=== PATIENT | female | born 1980 | race Caucasian/White ===

== ENCOUNTER 2016-12-01 01:20 | Emergency (ER) | payer OTHER ==
[2016-12-01 02:15] VITALS: BP 116/91
--- NOTE | 2016-12-01 02:40 | EDM.PDOC ---
ED HPI GENERAL MEDICAL PROBLEM - General Chief Complaint: ENT Problem Stated Complaint: SINUS INFECTION Time Seen by Provider: 12/01/16 02:34 Source of Information: Reports: Patient History Limitations: Reports: No Limitations - History of Present Illness INITIAL COMMENTS - FREE TEXT/NARRATIVE: This lady complains of sinus pressure. It's been going on for 2 weeks. It's mostly in the left frontal area. It seems to go up over the top of the head down to the back of the neck. She also just feels pressure over the front of the for head and over the maxillary sinuses. She had a little bit of drainage earlier in the week. She denies any fever. sinus, headache, and neck Pain Score (Numeric/FACES): 6 - Related Data Allergies Allergy/AdvReac Type Severity Reaction Status Date / Time ciprofloxacin [From Cipro] Allergy Fainting Verified 12/01/16 02:12 ciprofloxacin HCl Allergy Fainting Verified 12/01/16 02:12 [From Cipro] Sulfa (Sulfonamide Allergy Hives Verified 12/01/16 02:12 Antibiotics) sulfamethoxazole Allergy Hives Verified 12/01/16 02:12 [From Bactrim] trimethoprim [From Bactrim] Allergy Hives Verified 12/01/16 02:12 tape Allergy Itching Uncoded 12/01/16 02:12 Home Meds: Home Meds Albuterol Sulfate [Proair Hfa] 8.5 gm IH Q6HR PRN 11/04/14 [History] Citalopram Hydrobromide [Celexa] 10 mg PO DAILY 11/04/14 [History] Cyclobenzaprine [Flexeril] 10 mg PO TID PRN 11/04/14 [History] Mupirocin Oint [Bactroban Oint] 22 gm TP DAILY 11/04/14 [History] Ondansetron [Zofran ODT] 4 mg PO Q8HR PRN 11/04/14 [History] Triamcinolone Acetonide [Kenalog 0.1% Crm] 15 gm .XX DAILY 11/04/14 [History] Cholecalciferol (Vitamin D3) [Vitamin D3] 1 tab PO DAILY 06/01/15 [History] Erythromycin Base [Oliver-Tab] 1 tab PO BID 06/01/15 [History] Mineral Oil/Pramoxine/ZnOx [Anusol] 1 applic TOP DAILY PRN 06/01/15 [History] Multivitamin [Multivitamins] 1 tab PO DAILY 06/01/15 [History] Past Medical History - Past Health History Medical/Surgical History: Denies Medical/Surgical History Cardiovascular History: Reports: Other (See Below) Other Cardiovascular History: hypotension Respiratory History: Reports: Asthma Gastrointestinal History: Reports: Cholelithiasis, Hiatal Hernia, PUD Other Gastrointestinal History: ulcer Genitourinary History: Reports: UTI, Recurrent Other Genitourinary History: right ureter surgery 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: 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 Musculoskeletal History: Reports: Other (See Below) Other Musculoskeletal History: right hip tear with cortisone injection, pectoralis tendonitis Neurological History: Reports: Migraines Psychiatric History: Reports: Anxiety, Depression Other Dermatologic History: frequent infections of acne in groin - Infectious Disease History Infectious Disease History: Reports: C-Difficile - Past Surgical History HEENT Surgical History: Reports: LASIK GI Surgical History: Reports: Cholecystectomy, Vlad Fundoplication, Other ( See Below) Female Surgical History: Reports: Ureteral Stent Musculoskeletal Surgical History: Reports: Arthroscopic Knee Social & Family History - Tobacco Use Smoking Status *Q: Never Smoker Second Hand Smoke Exposure: No - Caffeine Use Caffeine Use: Reports: None - Recreational Drug Use Recreational Drug Use: No ED ROS ENT - Review of Systems Review Of Systems: ROS reveals no pertinent complaints other than HPI. ED EXAM, ENT - Physical Exam Exam: See Below Exam Limited By: No Limitations General Appearance: Alert, WD/WN, Mild Distress Eye Exam: Bilateral Eye: Normal Inspection Nose: Normal Inspection Mouth/Throat: Normal Inspection Head: Atraumatic, Sinus Tenderness (There is moderate to severe tenderness over the frontal sinus moderate tenderness over the maxillary sinuses.) Neck: Normal Inspection Respiratory/Chest: Lungs Clear Cardiovascular: Regular Rate, Rhythm, No Murmur Neurological: Alert, Oriented Skin: Warm, Dry Course - Vital Signs Last Recorded V/S: Last Vital Signs Temp 36.7 C 12/01/16 02:14 Pulse 82 12/01/16 02:14 Resp 16 12/01/16 02:14 BP 116/91 H 12/01/16 02:14 Pulse Ox 96 12/01/16 02:14 Departure - Departure Time of Disposition: 02:38 Disposition: Home, Self-Care 01 Condition: Fair Clinical Impression: Acute sinusitis - Discharge Information Forms: ED Department Discharge Additional Instructions: Take amoxicillin 500 mg 3 times daily for 10 days. For pain take Narco 5/325, one or 2 tablets every 4 hours as needed, #18 dispensed. This medication can cause sedation and impair driving so use with caution. You may take Motrin along with the above medications for extra pain relief. Do not however take any Tylenol or acetaminophen since that is already contained in the Happy. See your Dr. if no better in a few days
== END 2016-12-01 02:47 | disposition home or self-care (01) ==
LOC: JP.ED 01:20
DX: J01.90 Acute sinusitis, unspecified (principal); J45.909 Unspecified asthma, uncomplicated; G43.909 Migraine, unspecified, not intractable, without status migrainosus; F41.9 Anxiety disorder, unspecified; F32.9 Major depressive disorder, single episode, unspecified; I95.9 Hypotension, unspecified; Z90.49 Acquired absence of other specified parts of digestive tract; Z98.49 Cataract extraction status, unspecified eye; Z79.899 Other long term (current) drug therapy; Z88.1 Allergy status to other antibiotic agents; Z88.2 Allergy status to sulfonamides; Z91.09 Other allergy status, other than to drugs and biological substances
CPT/HCPCS: 99283

== ENCOUNTER 2017-01-21 21:17 | Emergency (ER) | payer OTHER ==
[2017-01-21] MEDS ORDERED: Ketorolac 30 MG/ML SDV IVPUSH ONE (23:02)
[2017-01-21] MEDS ORDERED: Prochlorperazine 10 MG/2 ML SDV IVPUSH ONE (23:02)
[2017-01-21] MEDS ORDERED: Sodium Chloride 0.9% 10 ML Syringe FLUSH PRN (23:02)
[2017-01-21] MEDS ORDERED: diphenhydrAMINE 50 MG/ML SDV IVPUSH ONE (23:02)
--- NOTE | 2017-01-21 23:04 | EDM.PDOC ---
ED HPI GENERAL MEDICAL PROBLEM - General Chief Complaint: Headache Stated Complaint: MIGRAINE Time Seen by Provider: 01/21/17 22:57 Source of Information: Reports: Patient, RN Notes Reviewed History Limitations: Reports: No Limitations - History of Present Illness INITIAL COMMENTS - FREE TEXT/NARRATIVE: 36-year-old female presents emergency department a complaint of headache, she has a known history of migraines feels this is typical for her she does have photophobia and nausea she's been ill this particular headache for about 36 hours Headache Pain Score (Numeric/FACES): 9 - Related Data Allergies Allergy/AdvReac Type Severity Reaction Status Date / Time ciprofloxacin [From Cipro] Allergy Fainting Verified 01/21/17 22:44 ciprofloxacin HCl Allergy Fainting Verified 01/21/17 22:44 [From Cipro] Sulfa (Sulfonamide Allergy Hives Verified 01/21/17 22:44 Antibiotics) sulfamethoxazole Allergy Hives Verified 01/21/17 22:44 [From Bactrim] trimethoprim [From Bactrim] Allergy Hives Verified 01/21/17 22:44 tape Allergy Itching Uncoded 01/21/17 22:44 Home Meds: Home Meds Albuterol Sulfate [Proair Hfa] 8.5 gm IH Q6HR PRN 11/04/14 [History] Citalopram Hydrobromide [Celexa] 10 mg PO DAILY 11/04/14 [History] Cyclobenzaprine [Flexeril] 10 mg PO TID PRN 11/04/14 [History] Mupirocin Oint [Bactroban Oint] 22 gm TP DAILY 11/04/14 [History] Ondansetron [Zofran ODT] 4 mg PO Q8HR PRN 11/04/14 [History] Triamcinolone Acetonide [Kenalog 0.1% Crm] 15 gm .XX DAILY 11/04/14 [History] Cholecalciferol (Vitamin D3) [Vitamin D3] 1 tab PO DAILY 06/01/15 [History] Mineral Oil/Pramoxine/ZnOx [Anusol] 1 applic TOP DAILY PRN 06/01/15 [History] Multivitamin [Multivitamins] 1 tab PO DAILY 06/01/15 [History] Past Medical History Cardiovascular History: Reports: Other (See Below) Other Cardiovascular History: hypotension Respiratory History: Reports: Asthma Gastrointestinal History: Reports: Cholelithiasis, Hiatal Hernia, PUD Other Gastrointestinal History: ulcer Genitourinary History: Reports: UTI, Recurrent Other Genitourinary History: right ureter surgery 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 Musculoskeletal History: Reports: Other (See Below) Other Musculoskeletal History: right hip tear with cortisone injection, pectoralis tendonitis Neurological History: Reports: Migraines Psychiatric History: Reports: Anxiety, Depression Other Dermatologic History: frequent infections of acne in groin - Infectious Disease History Infectious Disease History: Reports: Chicken Pox - Past Surgical History HEENT Surgical History: Reports: LASIK GI Surgical History: Reports: Cholecystectomy, Vlad Fundoplication, Other ( See Below) Female Surgical History: Reports: Ureteral Stent Musculoskeletal Surgical History: Reports: Arthroscopic Knee Social & Family History - Tobacco Use Smoking Status *Q: Never Smoker Second Hand Smoke Exposure: No - Caffeine Use Caffeine Use: Reports: None - Recreational Drug Use Recreational Drug Use: No ED ROS GENERAL - Review of Systems Review Of Systems: See Below Constitutional: Denies: Fever, Chills HEENT: Reports: Vision Change Respiratory: Reports: No Symptoms Cardiovascular: Reports: No Symptoms GI/Abdominal: Reports: No Symptoms Neurological: Reports: Headache - Physical Exam Exam: See Below Exam Limited By: No Limitations General Appearance: Alert, WD/WN, No Apparent Distress Eye Exam: Bilateral Eye: Normal Fundi, Normal Inspection Respiratory/Chest: No Respiratory Distress Course - Vital Signs Last Recorded V/S: Last Vital Signs Temp 97.9 F 01/22/17 01:26 Pulse 55 L 01/22/17 01:26 Resp 16 01/22/17 01:26 BP 115/77 01/22/17 01:26 Pulse Ox 95 01/22/17 01:26 - Orders/Labs/Meds Orders: Active Orders 24 hr Category Date Time Status Peripheral IV Care [RC] . DIRECTED Care 01/21/17 23:02 Active Sodium Chloride 0.9% [Normal Saline] 1,000 ml Med 01/21/17 23:15 Active IV ASDIRECTED Sodium Chloride 0.9% [Saline Flush] Med 01/21/17 23:02 Active 10 ml FLUSH ASDIRECTED PRN Peripheral IV Insertion Adult [OM.PC] Urgent Oth 01/21/17 23:01 Ordered Medication Orders Sodium Chloride (Normal Saline) 1,000 mls @ 999 mls/hr IV ASDIRECTED ONOFRE Last Admin: 01/21/17 23:27 Dose: 999 mls/hr Sodium Chloride (Saline Flush) 10 ml FLUSH ASDIRECTED PRN PRN Reason: Keep Vein Open Last Admin: 01/21/17 23:27 Dose: 10 ml Meds: Medications Generic Name Dose Route Start Last Admin Trade Name Freq PRN Reason Stop Dose Admin Sodium Chloride 1,000 mls @ 999 mls/hr 01/21/17 23:15 01/21/17 23:27 Normal Saline IV 999 mls/hr ASDIRECTED ONOFRE Administration Sodium Chloride 10 ml 01/21/17 23:02 01/21/17 23:27 Saline Flush FLUSH 10 ml ASDIRECTED PRN Administration Keep Vein Open Discontinued Medications Generic Name Dose Route Start Last Admin Trade Name Freq PRN Reason Stop Dose Admin Cyclobenzaprine HCl 10 mg 01/22/17 00:01 01/22/17 00:21 Flexeril PO 01/22/17 00:02 10 mg ONETIME ONE Administration Diphenhydramine HCl 50 mg 01/21/17 23:02 01/21/17 23:29 Benadryl IVPUSH 01/21/17 23:03 50 mg ONETIME ONE Administration Haloperidol Lactate 5 mg 01/22/17 00:02 01/22/17 00:21 Haldol IVPUSH 01/22/17 00:03 5 mg ONETIME ONE Administration Ketorolac Tromethamine 30 mg 01/21/17 23:02 01/21/17 23:32 Toradol IVPUSH 01/21/17 23:03 30 mg ONETIME ONE Administration Prochlorperazine Edisylate 5 mg 01/21/17 23:02 01/21/17 23:36 Compazine IVPUSH 01/21/17 23:03 5 mg ONETIME ONE Administration Departure - Departure Time of Disposition: 01:32 Disposition: Home, Self-Care 01 Condition: Good Clinical Impression: Migraine Qualifiers: Migraine type: with aura Status migrainosus presence: without status migrainosus Intractability: not intractable Qualified Code(s): G43.109 - Migraine with aura, not intractable, without status migrainosus - Discharge Information Referrals: Valerio Estes MD [Primary Care Provider] - Forms: ED Department Discharge Additional Instructions: Resume your regular medications, Please followup with your primary care provider in 3-5 days if not better, please call return to the emergency department with worsening of symptoms. - My Orders Last 24 Hours: My Active Orders 01/21/17 23:01 Peripheral IV Insertion Adult [OM.PC] Urgent 01/21/17 23:02 Peripheral IV Care [RC] . DIRECTED Sodium Chloride 0.9% [Saline Flush] 10 ml FLUSH ASDIRECTED PRN 01/21/17 23:15 Sodium Chloride 0.9% [Normal Saline] 1,000 ml IV ASDIRECTED - Assessment/Plan Last 24 Hours: My Active Orders 01/21/17 23:01 Peripheral IV Insertion Adult [OM.PC] Urgent 01/21/17 23:02 Peripheral IV Care [RC] . DIRECTED Sodium Chloride 0.9% [Saline Flush] 10 ml FLUSH ASDIRECTED PRN 01/21/17 23:15 Sodium Chloride 0.9% [Normal Saline] 1,000 ml IV ASDIRECTED Plan: Assessment Acuity = acute Site and laterality = migraine headache with aura Etiology = unclear etiology Manifestations = none Location of injury = Home Lab values = none Plan She had improvement combination Toradol, Compazine, 1 L of fluids, Flexeril, Benadryl and Haldol, have her follow-up with primary care 3-5 days for reevaluation Patient was in agreement with the plan all questions were answered, they were instructed to return to the emergency department or call for worsening symptoms. This note was dictated using [employer] voice recognition software please call with any questions.
[2017-01-21] MEDS ORDERED: Sodium Chloride 0.9% 1,000 ML IV SCH (23:15)
[2017-01-22] MEDS ORDERED: Cyclobenzaprine 10 MG Tab PO ONE (00:01)
[2017-01-22] MEDS ORDERED: Haloperidol Lactate 5 MG/ML SDV IVPUSH ONE (00:02)
[2017-01-22 01:27] VITALS: BP 115/77
== END 2017-01-22 01:46 | disposition home or self-care (01) ==
LOC: JP.ED 21:17
DX: G43.109 Migraine with aura, not intractable, without status migrainosus (principal); J45.909 Unspecified asthma, uncomplicated; I95.9 Hypotension, unspecified; F41.9 Anxiety disorder, unspecified; F32.9 Major depressive disorder, single episode, unspecified; Z90.49 Acquired absence of other specified parts of digestive tract; Z98.890 Other specified postprocedural states; Z87.440 Personal history of urinary (tract) infections; Z79.899 Other long term (current) drug therapy; Z88.1 Allergy status to other antibiotic agents; Z88.2 Allergy status to sulfonamides; Z91.09 Other allergy status, other than to drugs and biological substances
CPT/HCPCS: A9270; J0780; J1200; J1630; J1885; J7040; J7050; 96361; 96374; 96375; 99283-25

== ENCOUNTER 2017-08-16 21:27 | Emergency (ER) | payer OTHER ==
[2017-08-16 21:46] VITALS: BP 123/73
[2017-08-16] MEDS ORDERED: Ketorolac 60 MG/2 ML SDV IM ONE (22:42)
--- NOTE | 2017-08-16 22:42 | EDM.PDOC ---
ED HPI GENERAL MEDICAL PROBLEM - General Chief Complaint: Back Pain or Injury Stated Complaint: L RIB PAIN Time Seen by Provider: 08/16/17 22:40 Source of Information: Reports: Patient History Limitations: Reports: No Limitations - History of Present Illness INITIAL COMMENTS - FREE TEXT/NARRATIVE: pt arrived with pain in the left lateral rib cage area. Onset: Gradual, Other ( this has been going on for 2 weeks. ) Duration: Day(s): Location: Reports: Chest Associated Symptoms: Reports: Chest Pain, Other (pain in the left lateral rib cage area. ) Treatments PLATE SENSITIZER: Reports: Other (see below) Other Treatments PLATE SENSITIZER: unknown left lower rib Pain Score (Numeric/FACES): 7 - Related Data Allergies Allergy/AdvReac Type Severity Reaction Status Date / Time ciprofloxacin HCl Allergy Fainting Verified 08/16/17 22:45 [From Cipro] Sulfa (Sulfonamide Allergy Hives Verified 08/16/17 22:45 Antibiotics) tape Allergy Itching Uncoded 08/16/17 22:45 Home Meds: Home Meds Albuterol Sulfate [Proair Hfa] 8.5 gm IH Q6HR PRN 11/04/14 [History] Citalopram Hydrobromide [Celexa] 10 mg PO DAILY 11/04/14 [History] Cyclobenzaprine [Flexeril] 10 mg PO TID PRN 11/04/14 [History] Mupirocin Oint [Bactroban Oint] 22 gm TP DAILY PRN 11/04/14 [History] Ondansetron [Zofran ODT] 4 mg PO Q8HR PRN 11/04/14 [History] Triamcinolone Acetonide [Kenalog 0.1% Crm] 15 gm .XX DAILY 11/04/14 [History] Cholecalciferol (Vitamin D3) [Vitamin D3] 1 tab PO DAILY 06/01/15 [History] Multivitamin [Multivitamins] 1 tab PO DAILY 06/01/15 [History] Levothyroxine Sodium [Levoxyl] 50 mcg PO DAILY 08/16/17 [History] Topiramate 25 mg PO BID 08/16/17 [History] Past Medical History - Past Health History Medical/Surgical History: Denies Medical/Surgical History Cardiovascular History: Reports: Other (See Below) Other Cardiovascular History: hypotension Respiratory History: Reports: Asthma Gastrointestinal History: Reports: Cholelithiasis, Hiatal Hernia, PUD Other Gastrointestinal History: ulcer Genitourinary History: Reports: UTI, Recurrent Other Genitourinary History: right ureter surgery 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 Musculoskeletal History: Reports: Other (See Below) Other Musculoskeletal History: right hip tear with cortisone injection, pectoralis tendonitis Neurological History: Reports: Migraines Psychiatric History: Reports: Anxiety, Depression Endocrine/Metabolic History: Reports: Hypothyroidism, Obesity/BMI 30+ Other Dermatologic History: frequent infections of acne in groin - Infectious Disease History Infectious Disease History: Reports: Chicken Pox - Past Surgical History HEENT Surgical History: Reports: LASIK GI Surgical History: Reports: Cholecystectomy, Vlad Fundoplication, Other ( See Below) Female Surgical History: Reports: Ureteral Stent Musculoskeletal Surgical History: Reports: Arthroscopic Knee Social & Family History - Tobacco Use Smoking Status *Q: Never Smoker Second Hand Smoke Exposure: No - Caffeine Use Caffeine Use: Reports: None - Recreational Drug Use Recreational Drug Use: No ED ROS GENERAL - Review of Systems Review Of Systems: See Below Constitutional: Reports: No Symptoms HEENT: Reports: No Symptoms Respiratory: Reports: Other (pain in left lateral chest. ) Cardiovascular: Reports: No Symptoms Endocrine: Reports: No Symptoms GI/Abdominal: Reports: No Symptoms : Reports: No Symptoms Musculoskeletal: Reports: Other (pain in the left rib cage area. ) Skin: Reports: No Symptoms ED EXAM, UPPER BACK/NECK PAIN - Physical Exam Exam: See Below Text/Narrative:: pt arrived with pain in her left lateral chest. It hurts when she moves a certain way and when she takes a deep breath. She does get muscle spasms. Exam Limited By: No Limitations General Appearance: Alert, Mild Distress Ears Exam: Normal TMs Nose Exam: Normal Inspection Throat/Mouth Exam: Normal Inspection Head Exam: Atraumatic Neck Exam: Non-Tender Cardiovascular/Respiratory: Regular Rate, Rhythm, Other (pt is tender to palpate in the left lateral chest. She hurts if she takes a real deep breath. ) GI/Abdominal: Soft, Non-Tender (Female) Exam: Deferred Rectal (Female) Exam: Deferred Back Exam: Normal Inspection Extremities: Normal Inspection Course - Vital Signs Last Recorded V/S: Last Vital Signs Temp 36.4 C 08/16/17 21:57 Pulse 82 08/16/17 21:57 Resp 16 08/16/17 21:57 BP 123/73 08/16/17 21:57 Pulse Ox 97 08/16/17 21:57 - Orders/Labs/Meds Orders: Active Orders 24 hr Category Date Time Status Ribs 2V w Chest Lt [CR] Stat Exams 08/16/17 22:39 Taken UA W/MICROSCOPIC [URIN] Urgent Lab 08/16/17 23:19 Ordered Labs: Laboratory Tests 08/16/17 Range/Units 22:45 WBC 6.7 (4.5-11.0) K/uL RBC 4.48 (3.30-5.50) M/uL Hgb 13.2 (12.0-15.0) g/dL Hct 39.7 (36.0-48.0) % MCV 89 (80-98) fL MCH 30 (27-31) pg MCHC 33 (32-36) % Plt Count 337 (150-400) K/uL Neut % (Auto) 65 (36-66) % Lymph % (Auto) 26 (24-44) % Meagher % (Auto) 7 H (2-6) % Eos % (Auto) 2 (2-4) % Baso % (Auto) 0 (0-1) % Meds: Medications Discontinued Medications Generic Name Dose Route Start Last Admin Trade Name Sheri PRN Reason Stop Dose Admin Ketorolac Tromethamine 60 mg 08/16/17 22:42 08/16/17 22:56 Toradol IM 08/16/17 22:43 60 mg ONETIME ONE Administration - Re-Assessments/Exams Free Text/Narrative Re-Assessment/Exam: 08/16/17 23:49 pt arrived with pain in the left chest which is tender to palpation, A chest xray and rib detail was obtained which was neg. Her wbc was normal. She was given torodol 60mg im. 08/16/17 23:50 Departure - Departure Time of Disposition: 23:51 Disposition: Home, Self-Care 01 Condition: Fair Clinical Impression: Rib pain on left side - Discharge Information Referrals: Valerio Estes MD [Primary Care Provider] - Forms: ED Department Discharge Care Plan Goals: moist warm heat to the area, soak in a tub. Flexeril 10 mg hs, torodol 10mg q6h for 5-6 days. - My Orders Last 24 Hours: My Active Orders 08/16/17 22:39 Ribs 2V w Chest Lt [CR] Stat 08/16/17 23:19 UA W/MICROSCOPIC [URIN] Urgent - Assessment/Plan Last 24 Hours: My Active Orders 08/16/17 22:39 Ribs 2V w Chest Lt [CR] Stat 08/16/17 23:19 UA W/MICROSCOPIC [URIN] Urgent
--- NOTE | 2017-08-17 09:58 | CR ---
Ribs 2V w Chest Lt HISTORY: No Clinical Info FINDINGS: Heart size within normal limits. Pulmonary vasculature within normal limits. No evidence fo r focal consolidation or cardiopulmonary process. No evidence for displaced left rib fracture.
== END 2017-08-17 00:05 | disposition home or self-care (01) ==
LOC: JP.ED 21:27
DX: R07.81 Pleurodynia (principal); I10 Essential (primary) hypertension; E03.9 Hypothyroidism, unspecified; J45.909 Unspecified asthma, uncomplicated; G43.909 Migraine, unspecified, not intractable, without status migrainosus; F41.9 Anxiety disorder, unspecified; F32.9 Major depressive disorder, single episode, unspecified; Z79.899 Other long term (current) drug therapy; Z88.1 Allergy status to other antibiotic agents; Z88.2 Allergy status to sulfonamides; Z91.09 Other allergy status, other than to drugs and biological substances
CPT/HCPCS: 36415; 71101; 81001; 85025; 96372; 99284; J1885

== ENCOUNTER 2018-09-30 15:09 | Emergency (ER) | payer MEDICAID, OTHER ==
[2018-09-30 16:03] VITALS: BP 127/62
[2018-09-30] MEDS ORDERED: Ketorolac 60 MG/2 ML SDV IM ONE (16:20)
--- NOTE | 2018-09-30 16:27 | EDM.PDOC ---
ED HPI GENERAL MEDICAL PROBLEM - General Chief Complaint: General Stated Complaint: FLU Time Seen by Provider: 09/30/18 16:21 Source of Information: Reports: Patient History Limitations: Reports: No Limitations - History of Present Illness INITIAL COMMENTS - FREE TEXT/NARRATIVE: Alert 30-year-old female presents with a 4 day history of URI symptoms and cough. Patient states she has had a fever as high as 2 with generalized body aches and pains. She has not been able to sleep over the last 2 evening secondary to body fever and cough which is productive at times. Patient states she also has a headache and a history of migraines. She did take Mucinex over the course of last 2 days of no improvement. She looks Excedrin this morning with the brief resolution of her headache but reoccurrence of this point in time. 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 Patient denies . Periods are normal. Patient has no history of pneumonia. She has some nasal congestion but denies significant sore throat no pain with swallowing appetite is slightly decreased. Onset: Gradual Duration: Day(s): (4) Location: Reports: Chest Severity: Moderate Associated Symptoms: Reports: Chest Pain, Cough, Fever/Chills, Headaches, Loss of Appetite, Shortness of Breath. 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, Cold Therapy - Related Data Allergies Allergy/AdvReac Type Severity Reaction Status Date / Time ciprofloxacin HCl Allergy Fainting Verified 09/30/18 15:55 [From Cipro] Sulfa (Sulfonamide Allergy Hives Verified 09/30/18 15:55 Antibiotics) tape Allergy Itching Uncoded 09/30/18 15:55 Home Meds: Home Meds Albuterol Sulfate [Proair Hfa] 8.5 gm IH Q6HR PRN 11/04/14 [History] Citalopram Hydrobromide [Celexa] 10 mg PO DAILY 11/04/14 [History] Cyclobenzaprine [Flexeril] 10 mg PO TID PRN 11/04/14 [History] Mupirocin Oint [Bactroban Oint] 22 gm TP DAILY PRN 11/04/14 [History] Ondansetron [Zofran ODT] 4 mg PO Q8HR PRN 11/04/14 [History] Triamcinolone Acetonide [Kenalog 0.1% Crm] 15 gm .XX DAILY 11/04/14 [History] Cholecalciferol (Vitamin D3) [Vitamin D3] 1 tab PO DAILY 06/01/15 [History] Multivitamin [Multivitamins] 1 tab PO DAILY 06/01/15 [History] Levothyroxine Sodium [Levoxyl] 50 mcg PO DAILY 08/16/17 [History] Topiramate 25 mg PO BID 08/16/17 [History] Benzonatate [Tessalon Perle] 100 mg PO Q6HR PRN #20 capsule 09/30/18 [Rx] Norgestimate-Ethinyl Estradiol [Sprintec 28 Day Tablet] 1 tab PO DAILY 09/30/18 [History] Past Medical History - Past Health History Medical/Surgical History: Denies Medical/Surgical History Cardiovascular History: Reports: Other (See Below) Other Cardiovascular History: hypotension Respiratory History: Reports: Asthma Gastrointestinal History: Reports: Cholelithiasis, Hiatal Hernia, PUD Other Gastrointestinal History: ulcer Genitourinary History: Reports: UTI, Recurrent Other Genitourinary History: right ureter surgery [employer] History: Reports: 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 Musculoskeletal History: Reports: Other (See Below) Other Musculoskeletal History: right hip tear with cortisone injection, pectoralis tendonitis Neurological History: Reports: Migraines Psychiatric History: Reports: Anxiety, Depression Endocrine/Metabolic History: Reports: Hypothyroidism, Obesity/BMI 30+ Other Dermatologic History: frequent infections of acne in groin - Infectious Disease History Infectious Disease History: Reports: Chicken Pox - Past Surgical History HEENT Surgical History: Reports: LASIK GI Surgical History: Reports: Cholecystectomy, Vlad Fundoplication, Other ( See Below) Female Surgical History: Reports: Ureteral Stent Musculoskeletal Surgical History: Reports: Arthroscopic Knee Social & Family History - Tobacco Use Smoking Status *Q: Never Smoker - Caffeine Use Caffeine Use: Reports: None - Living Situation & Occupation 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 ED EXAM, GENERAL - Physical Exam Exam: See Below Exam Limited By: No Limitations General Appearance: Alert, WD/WN, No Apparent Distress Eye Exam: Bilateral Eye: EOMI, Normal Inspection Ears: Normal External Exam, Normal Canal, Hearing Grossly Normal, Normal TMs Nose: Normal Inspection, Normal Mucosa, No Blood, Clear Rhinorrhea Throat/Mouth: Normal Inspection, Normal Lips, Normal Teeth, Normal Gums, Normal Oropharynx, Normal Voice, No Airway Compromise Neck: Normal Inspection, Supple, Non-Tender, Full Range of Motion Respiratory/Chest: No Respiratory Distress, Lungs Clear, Normal Breath Sounds, No Accessory Muscle Use, Chest Non-Tender Cardiovascular: Normal Peripheral Pulses, Regular Rate, Rhythm, No Murmur, Extra Beats GI/Abdominal: Soft, Non-Tender Neurological: Alert, Oriented, CN II-XII Intact, Normal Cognition, Normal Gait Skin Exam: Warm, Dry, Intact, Normal Color, No Rash Course - Vital Signs Last Recorded V/S: Last Vital Signs Temp 38.1 C 09/30/18 16:00 Pulse 93 09/30/18 16:00 Resp 14 09/30/18 16:00 BP 127/62 09/30/18 16:00 Pulse Ox 98 09/30/18 16:00 - Orders/Labs/Meds Orders: Active Orders 24 hr Category Date Time Status Chest 2V [CR] Stat Exams 09/30/18 16:20 Taken Meds: Medications Discontinued Medications Generic Name Dose Route Start Last Admin Trade Name Freq PRN Reason Stop Dose Admin Ketorolac Tromethamine 60 mg 09/30/18 16:20 09/30/18 16:47 Toradol IM 09/30/18 16:21 60 mg ONETIME ONE Administration - Radiology Interpretation Free Text/Narrative:: CHEST PA/LAT: No acute cardiopulmonary abnormalities noted. Images read by myself during ED visit. Radiology report: Pending. Departure - Departure Time of Disposition: 16:54 Disposition: Home, Self-Care 01 Condition: Good Clinical Impression: Bronchitis, URI (upper respiratory infection) - Discharge Information Referrals: Valerio Estes MD [Primary Care Provider] - Forms: ED Department Discharge - Problem List & Annotations (1) Bronchitis SNOMED Code(s): 74818597 Code(s): J40 - BRONCHITIS, NOT SPECIFIED ACUTE OR CHRONIC Status: Acute Current Visit: Yes (2) URI (upper respiratory infection) SNOMED Code(s): 23027228 Code(s): J06.9 - ACUTE UPPER RESPIRATORY INFECTION, UNSPECIFIED Status: Acute Current Visit: Yes Qualifiers: URI type: unspecified viral URI Qualified Code(s): J06.9 - Acute upper respiratory infection, unspecified - My Orders Last 24 Hours: My Active Orders 09/30/18 16:20 Chest 2V [CR] Stat - Assessment/Plan Last 24 Hours: My Active Orders 09/30/18 16:20 Chest 2V [CR] Stat Plan: BRONCHITIS 1. Increase fluid intake. 2. InstyMed used: Tesselon Perles as directed for cough. Robitussin AC as directed for pain and cough. 3. Tylenol 500-1000mg every 6-8 hours for mild pain and fever 4. InstyMed: Ibuprofen 600-800mg or Naproxen every 6-8 hours for pain, swelling , inflammation and fever. 5. Follow Bronchitis Information given. 6. See PCP in 5-7 days if not improving sooner if worsen symptoms. 7. Return for repeat evaluation if increase, changes, new or worsen symptoms. 8. If you smoke STOP SMOKING. Discharge Instructions Bronchitis, Pneumonia, Bronchospasm You were seen today for a chest infection or inflammation. If your provider decided this was due to a bacterial infection, you may need an antibiotic. Sometimes these are caused by a virus, and then an antibiotic will not help. Please follow-up as instructed by your provider today. Return to the clinic or Emergency Department if: Your breathing gets much worse. You are very weak, or feel much more ill. You develop new symptoms, such as chest pain. You cough up blood. You are vomiting (throwing up) enough that you cannot keep fluids or your medicine down. What can I do to help myself? Fill any prescriptions the provider gave you and take them right awayespecially antibiotics. Be sure to finish the whole antibiotic prescription. You may be given a prescription for an inhaler, which can help loosen tight air passages. Use this as needed, but not more often than directed. Inhalers work much better when used with a spacer. You may be given a prescription for a steroid to reduce inflammation. Used long-term, these can have side effects, but for short-term use they are safe. You may notice restlessness or increased appetite. You may use non-prescription cough or cold medicines. Cough medicines may help, but dont make the cough go away completely. Avoid smoke, because this can make your symptoms worse. If you smoke, this may be a good time to quit! Consider using nicotine lozenges, gum, or patches to reduce cravings. If you have a fever, Tylenol (acetaminophen), Motrin (ibuprofen), or Advil (ibuprofen) may help bring fever down and may help you feel more comfortable. Be sure to read and follow the package directions, and ask your provider if you have questions. Be sure to get your flu shot each year. For certain ages, the pneumonia shot can help prevent pneumonia. If you were given a prescription for medicine here today, be sure toread all of the information (including the package insert) that comes with your prescription. This will include important information about the medicine, its side effects, and any warnings that you need to know about. The pharmacist who fills the prescription can provide more information and answer questions you may have about the medicine. If you have questions or concerns that the pharmacist cannot address, please call or return to the Emergency Department. Remember that you can always come back to the Emergency Department if you are not able to see your regular provider in the amount of time listed above, if you get any new symptoms, or if there is anything that worries you.
--- NOTE | 2018-09-30 17:50 | CRLCR ---
INDICATION: Fever, productive cough TECHNIQUE: Chest 2 views. COMPARISON: None available FINDINGS: The heart is normal in size. The pulmonary vasculature is within normal limits. The lungs are clear without focal consolidation, pleural effusion or pneumothorax. The visualized osseous structures are unremarkable. IMPRESSION: No acute pulmonary process. Dictated by Patricia Shaw MD @ 09/30/2018 5:50:16 PM Dictated by: Patricia Shaw MD @ 09/30/2018 17:50:26 (Electronically Signed)
== END 2018-09-30 17:39 | disposition home or self-care (01) ==
LOC: JP.ED 15:09
DX: J40 Bronchitis, not specified as acute or chronic (principal); J06.9 Acute upper respiratory infection, unspecified; J45.909 Unspecified asthma, uncomplicated; F41.9 Anxiety disorder, unspecified; F32.9 Major depressive disorder, single episode, unspecified; Z79.899 Other long term (current) drug therapy; Z88.2 Allergy status to sulfonamides; Z91.09 Other allergy status, other than to drugs and biological substances; Z88.1 Allergy status to other antibiotic agents
CPT/HCPCS: 71046; 96372; 99283; J1885

== ENCOUNTER 2020-10-26 15:21 | Emergency (ER) | payer MEDICAID ==
[2020-10-26 15:37] VITALS: BP 103/53; PULSE 93
--- NOTE | 2020-10-26 16:27 | EDM.PDOC ---
ED HPI GENERAL MEDICAL PROBLEM - General Chief Complaint: Upper Extremity Injury/Pain Stated Complaint: SHOULDER INJURY TUESDAY NIGHT Time Seen by Provider: 10/26/20 15:45 Source of Information: Reports: Patient History Limitations: Reports: No Limitations - History of Present Illness INITIAL COMMENTS - FREE TEXT/NARRATIVE: 40-year-old female that is already receiving treatment for left bicipital tendinitis was pulling wet clothing off of herself 2 days ago when she developed a very sudden sharp pain in her left anterior shoulder radiating down her left arm. She is still having a deep-seated pain radiating down the arm that is somewhat worse with movement. She still has fairly good active movement but increased pain with placing her hand behind her head. She has not had any bruising or swelling. No shortness of breath or fever. She did not have any direct trauma to the shoulder. Onset: Sudden Duration: Day(s): (2 days ago) Location: Reports: Upper Extremity, Left Quality: Reports: Sharp, Stabbing Associated Symptoms: Reports: No Other Symptoms Left Upper Arm Pain Score (Numeric/FACES): 8 - Related Data Allergies Allergy/AdvReac Type Severity Reaction Status Date / Time ciprofloxacin HCl Allergy Fainting Verified 10/26/20 15:43 [From Cipro] Sulfa (Sulfonamide Allergy Hives Verified 10/26/20 15:43 Antibiotics) tape Allergy Itching Uncoded 10/26/20 15:43 Home Meds: Home Meds Albuterol Sulfate [Proair Hfa] 8.5 gm IH Q6HR PRN 11/04/14 [History] Citalopram Hydrobromide [Celexa] 10 mg PO DAILY 11/04/14 [History] Cyclobenzaprine [Flexeril] 10 mg PO TID PRN 11/04/14 [History] Mupirocin Oint [Bactroban Oint] 22 gm TP DAILY PRN 11/04/14 [History] Ondansetron [Zofran ODT] 4 mg PO Q8HR PRN 11/04/14 [History] Triamcinolone Acetonide [Kenalog 0.1% Crm] 15 gm .XX DAILY 11/04/14 [History] Cholecalciferol (Vitamin D3) [Vitamin D3] 1 tab PO DAILY 06/01/15 [History] Multivitamin [Multivitamins] 1 tab PO DAILY 06/01/15 [History] Levothyroxine Sodium [Levoxyl] 50 mcg PO DAILY 08/16/17 [History] Topiramate 25 mg PO BID 08/16/17 [History] norgestimate-ethinyl estradioL [Sprintec 28 Day Tablet] 1 tab PO DAILY 09/30/18 [History] Past Medical History - Past Health History Medical/Surgical History: Denies Medical/Surgical History Cardiovascular History: Reports: Other (See Below) Other Cardiovascular History: hypotension Respiratory History: Reports: Asthma Gastrointestinal History: Reports: Cholelithiasis, Hiatal Hernia, PUD Other Gastrointestinal History: ulcer Genitourinary History: Reports: UTI, Recurrent Other Genitourinary History: right ureter surgery [employer] History: Reports: 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 Musculoskeletal History: Reports: Other (See Below) Other Musculoskeletal History: right hip tear with cortisone injection, pectoralis tendonitis l upper arm pain Neurological History: Reports: Migraines Psychiatric History: Reports: Anxiety, Depression Endocrine/Metabolic History: Reports: Hypothyroidism, Obesity/BMI 30+ Other Dermatologic History: frequent infections of acne in groin - Infectious Disease History Infectious Disease History: Reports: Chicken Pox - Past Surgical History HEENT Surgical History: Reports: LASIK GI Surgical History: Reports: Cholecystectomy, Meggan Fundoplication, Other (See Below) Other GI Surgeries/Procedures: perforated ulcer, meggan Female Surgical History: Reports: Ureteral Stent Musculoskeletal Surgical History: Reports: Arthroscopic Knee Social & Family History - Tobacco Use Tobacco Use Status *Q: Never Tobacco User Second Hand Smoke Exposure: No - Caffeine Use Caffeine Use: Reports: Tea - Recreational Drug Use Recreational Drug Use: No - Living Situation & Occupation 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 Review of Systems - Review of Systems Review Of Systems: See Below Constitutional: Denies: Fever Respiratory: Reports: No Symptoms Cardiovascular: Reports: No Symptoms Musculoskeletal: Reports: Shoulder Pain, Arm Pain (Left side) Skin: Denies: Bruising ED EXAM, GENERAL - Physical Exam Exam: See Below Exam Limited By: No Limitations General Appearance: Alert, No Apparent Distress Head: Atraumatic Neck: Non-Tender Respiratory/Chest: No Respiratory Distress Extremities: Other (Tender to palpation along the anterior left shoulder into the upper bicep but no deformity, swelling, AC step-off or bruising) Neurological: Alert, Oriented, Other (Some difficulty with external rotation and extension of the left arm due to pain, no neurologic deficit) Course - Vital Signs Last Recorded V/S: Last Vital Signs Temp 97.8 F 10/26/20 15:52 Pulse 93 10/26/20 15:52 Resp 14 10/26/20 15:52 BP 103/53 L 10/26/20 15:52 Pulse Ox 95 10/26/20 15:52 - Orders/Labs/Meds Orders: Active Orders 24 hr Category Date Time Status Consult to Orthopedic Clinic [CONS] Routine Cons 10/26/20 16:25 Active Shoulder Comp Lt [CR] Stat Exams 10/26/20 15:52 Taken DME for Discharge [COMM] Stat Oth 10/26/20 16:21 Ordered - Re-Assessments/Exams Free Text/Narrative Re-Assessment/Exam: 10/26/20 16:24 An x-ray of the left shoulder was obtained which is normal. A left arm was placed in a sling, I encouraged her to continue with ibuprofen and muscle relaxers as she is already doing for her bicep tendon problem, and recheck with Dr. Norton this week as she may need an MRI if not improving. Departure - Departure Time of Disposition: 16:52 Disposition: Home, Self-Care 01 Clinical Impression: Left shoulder strain Qualifiers: Encounter type: initial encounter Qualified Code(s): S46.912A - Strain of un specified muscle, fascia and tendon at shoulder and upper arm level, left arm, initial encounter - Discharge Information Instructions: Shoulder Pain, Gysc-tb-Aids Referrals: Valerio Estes MD [Primary Care Provider] - Forms: ED Department Discharge Care Plan Goals: Use sling to rest the arm for the next couple of days, remove the arm 2-3 times daily for gentle range of motion. Continue with ibuprofen and call the orthopedic clinic tomorrow morning for an appointment this week for recheck. Sepsis Event Note (ED) - Evaluation Sepsis Screening Result: No Definite Risk - Focused Exam Vital Signs: Vital Signs Temp Pulse Resp BP Pulse Ox 10/26/20 15:52 97.8 F 93 14 103/53 L 95 10/26/20 15:35 97.8 F 93 14 103/53 L 95 - My Orders Last 24 Hours: My Active Orders 10/26/20 15:52 Shoulder Comp Lt [CR] Stat 10/26/20 16:21 DME for Discharge [COMM] Stat 10/26/20 16:25 Consult to Orthopedic Clinic [CONS] Routine - Assessment/Plan Last 24 Hours: My Active Orders 10/26/20 15:52 Shoulder Comp Lt [CR] Stat 10/26/20 16:21 DME for Discharge [COMM] Stat 10/26/20 16:25 Consult to Orthopedic Clinic [CONS] Routine
--- NOTE | 2020-10-27 09:46 | CR ---
Shoulder Comp Lt CLINICAL HISTORY: Pain FINDINGS: There is no acute fracture or dislocation in the left shoulder. Articular surfaces are smooth Impression: Negative
== END 2020-10-26 16:40 | disposition home or self-care (01) ==
LOC: JP.ED 15:21
DX: S46.912A Strain of unspecified muscle, fascia and tendon at shoulder and upper arm level, left arm, initial encounter (principal); J45.909 Unspecified asthma, uncomplicated; E03.9 Hypothyroidism, unspecified; E66.9 Obesity, unspecified; Z68.35 Body mass index [BMI] 35.0-35.9, adult; Z88.1 Allergy status to other antibiotic agents; Z88.2 Allergy status to sulfonamides; X58.XXXA Exposure to other specified factors, initial encounter
CPT/HCPCS: 73030-26-LT; 73030-LT; 99283-25

== ENCOUNTER 2020-11-10 07:10 | Day surgery (SDC) | payer MEDICAID ==
[~2020-11-10 07:10] MED LIST: Bupivacaine 0.5% 30 ML SDV ONE
[2020-11-10] MEDS ORDERED: Propofol 200 MG/20 ML SDV ONE ×2 (07:22→09:28)
[2020-11-10] MEDS ORDERED: fentaNYL 100 MCG/2 ML SDV ONE (07:22)
[2020-11-10] MEDS ORDERED: Midazolam 1 MG/ML 2 ML SDV ONE ×2 (07:22→09:21)
[2020-11-10] MEDS ORDERED: Bupivacaine 0.5% 30 ML SDV ONE (07:24)
[2020-11-10 08:07] LABS: CORONAVIRUS COVID-19 NAA NEGATIVE (NEGATIVE)
[2020-11-10] MEDS ORDERED: Nozin Nasal Sanitizer NASBOTH ONE (08:30)
[2020-11-10] MEDS ORDERED: ceFAZolin 1 GM in Premix Bag 1 BAG IV ONE (08:30)
[2020-11-10] MEDS ORDERED: Lactated Ringers 1,000 ML IV SCH (08:30)
[2020-11-10 10:58] VITALS: PULSE 69
[2020-11-10 11:08] VITALS: BP 139/76
--- NOTE | 2020-11-17 20:21 | OR ---
DATE OF PROCEDURE: 11/10/2020 SURGEON: Severiano Norton MD PREOPERATIVE DIAGNOSIS: Impingement left shoulder with rotator cuff tendinopathy. POSTOPERATIVE DIAGNOSES: 1. Impingement left shoulder, rotator cuff tendinopathy. 2. Synovitis, left shoulder. PROCEDURES: Arthroscopy, left shoulder with limited synovectomy and subacromial decompression with acromioplasty. ANESTHESIA: Interscalene block with sedation. INDICATIONS: Georgina is a 40-year-old female with a history of persistent and progressive left shoulder pain for the past several months. She had failed conservative treatment with activity modification, physical therapy, medications. She now presents for arthroscopic subacromial decompression with evaluation of the rotator cuff. Risks, benefits and potential complications of the procedure were discussed. DESCRIPTION OF PROCEDURE: After adequate anesthesia was obtained, the patient placed in lateral decubitus position and secured with the beanbag positioner. Left shoulder and arm were prepped and draped in a sterile fashion. Standard posterior portal was established. The scope was introduced. Glenohumeral joint showed no degenerative changes of the humeral head or glenoid. Labrum was intact. Fairly significant synovitis was present throughout the joint with inflamed synovial lining. Anterior portal was established and limited synovectomy accomplished debriding synovium which was most prominent anteriorly. Biceps tendon was intact. Subscapularis was intact. Undersurface of the rotator cuff was thoroughly inspected and found to be intact as well. The scope was removed and placed in the subacromial space. [id number] inflammation was present within the subacromial bursa. Lateral portal was established and bursa was resected using combination of shaver and radiofrequency ablation. Significant scuffing on the undersurface of the coracoacromial ligament was noted as well as corresponding portion of the rotator cuff. Soft tissues were cleared from the undersurface of the acromion exposing the anterolateral hook. Acromioplasty was then accomplished using a mireya removing approximately 5 mm from the undersurface of the acromion anterolaterally bevelling this medially and posteriorly. The bursal surface of the rotator cuff was then fully evaluated visually and by palpation. Cuff was intact. [id number] inflammation was present. No other abnormalities are identified. Shoulder was drained. Scope was withdrawn. Port sites were closed in a standard fashion and sterile dressing was applied. The patient tolerated the procedure well. There were no complications. Taken from the operating room in stable condition. Severiano Norton MD /[id number]
== END 2020-11-10 11:30 | disposition home or self-care (01) ==
LOC: JP.SDS 07:10
PROVIDERS: ATTEND Specialist
DX: M25.812 Other specified joint disorders, left shoulder (principal); M65.812 Other synovitis and tenosynovitis, left shoulder; E66.9 Obesity, unspecified; J45.909 Unspecified asthma, uncomplicated; Z88.8 Allergy status to other drugs, medicaments and biological substances; Z88.2 Allergy status to sulfonamides; Z88.1 Allergy status to other antibiotic agents; Z01.812 Encounter for preprocedural laboratory examination; Z20.822 Contact with and (suspected) exposure to COVID-19
CPT/HCPCS: 0241U; 29820; 29826; 36415; 80053; 84703; 85027; A9270; C1713; J0690; J2250; J2704; J3010; J3490; J7120

== ENCOUNTER 2021-01-14 06:59 | Day surgery (SDC) | payer MEDICAID ==
[2021-01-14] MEDS ORDERED: Triamcinolone Acetonide 40 MG/ML 1 ML SDV ONE (07:14)
[2021-01-14] MEDS ORDERED: Lactated Ringers 1,000 ML IV SCH (08:15)
[2021-01-14] MEDS ORDERED: ceFAZolin 1 GM in Premix Bag 1 BAG IV ONE (08:30)
[2021-01-14] MEDS ORDERED: fentaNYL 100 MCG/2 ML SDV ONE (10:05)
[2021-01-14] MEDS ORDERED: Midazolam 1 MG/ML 2 ML SDV ONE (10:05)
[2021-01-14] MEDS ORDERED: Propofol 200 MG/20 ML SDV ONE ×2 (10:05→10:54)
[2021-01-14] MEDS ORDERED: Bupivacaine 0.5% 30 ML SDV ONE ×2 (10:06→11:07)
[2021-01-14 13:04] VITALS: BP 133/86; PULSE 68
--- NOTE | 2021-01-19 15:40 | OR ---
DATE OF PROCEDURE: 01/14/2021 SURGEON: Severiano Norton MD PREOPERATIVE DIAGNOSIS: Adhesive capsulitis, left shoulder. POSTOPERATIVE DIAGNOSIS: Adhesive capsulitis, left shoulder. PROCEDURE PERFORMED: Arthroscopy of left shoulder with capsular release, lysis of adhesions, and manipulation under anesthesia. ANESTHESIA: Interscalene block with sedation. INDICATIONS: Georgina is a 40-year-old female with a history of rotator cuff tendinopathy and impingement syndrome who underwent a previous arthroscopic decompression. She has had difficulty with persistent pain and restricted range of motion which has actually gotten worse since her surgery. Examination is consistent with adhesive capsulitis with hard stop range of motion restrictions, particularly of external rotation. She now presents for a capsular release and manipulation. Risks, benefits, and potential complications of the procedure were discussed. DESCRIPTION OF PROCEDURE: After adequate anesthesia was obtained, the patient was placed in a lateral decubitus position and secured with a delgado bag positioner. Examination under anesthesia revealed significant restriction in range of motion with only about a 30-degree internal and external rotation arc with external rotation limited to only about 10 to 15 degrees. Flexion limited to just beyond 90 degrees. A standard posterior portal was established. The scope was introduced. The joint did demonstrate significant tightness. Inflammation was noted throughout the joint capsule with adhesions anteriorly. An anterior portal was established, and using a combination of shaver and the ablation wand, adhesions were debrided. Capsular release was begun just inferior to the biceps tendon and working from superior to inferior along the anterior edge of the glenoid. This was taken down to approximately the 5 o'clock position. The scope was then switched from the posterior to the anterior position, and again, significant inflammation was noted in restriction posteriorly. Ablation wand was used to release the capsule from just above the posterior portal and working inferior to the inferior aspect of the glenoid. The scope was withdrawn. The arm was taken out of traction and externally rotated, and with very minor release of remaining adhesions, external rotation was obtained to 90 degrees with very little effort. Internal rotation was then obtained to approximately 80 degrees, forward flexion to 180 degrees. The arm was then brought out into abduction, and again, external rotation could be obtained to 90 degrees and internal rotation to 80 degrees. The port sites were closed in a standard fashion. A spinal needle was used to inject 80 mg of Depo-Medrol intraarticularly along with additional 30 mg of 0.5% Marcaine. A sterile dressing was applied. The patient tolerated the procedure well. There were no complications. She was taken from the operating room in stable condition. Severiano Norton MD /[id number]
== END 2021-01-14 13:30 | disposition home or self-care (01) ==
LOC: JP.SDS 06:59
PROVIDERS: ATTEND Specialist
DX: M75.02 Adhesive capsulitis of left shoulder (principal); Z88.2 Allergy status to sulfonamides; Z91.09 Other allergy status, other than to drugs and biological substances
CPT/HCPCS: 20610; 29825; 36415; 80048; 84703; 85025; C1713; J0690; J2250; J2704; J3010; J3301; J3490; J7120

== ENCOUNTER 2021-04-18 09:12 | Emergency (ER) | payer MEDICAID ==
[2021-04-18 09:47] VITALS: BP 120/62; PULSE 104
--- NOTE | 2021-04-18 10:25 | EDM.PDOC ---
ED HPI GENERAL MEDICAL PROBLEM - General Chief Complaint: General Stated Complaint: COUGH, FEVER Time Seen by Provider: 04/18/21 10:08 Source of Information: Reports: Patient, RN Notes Reviewed History Limitations: Reports: No Limitations - History of Present Illness INITIAL COMMENTS - FREE TEXT/NARRATIVE: 41-year-old female presents emergency department today with concern about pneumonia, she states when she exerts herself she gets very lightheaded dizzy and feels like she is going to pass out. She has not fallen and hurt herself. Has had fevers at home cough shortness of breath she has been ill for 5 days she is unvaccinated for COVID-19 - Related Data Allergies Allergy/AdvReac Type Severity Reaction Status Date / Time adhesive Allergy Hives Verified 04/18/21 09:34 adhesive tape Allergy Hives Verified 04/18/21 09:34 ciprofloxacin HCl Allergy Fainting Verified 04/18/21 09:34 [From Cipro] Sulfa (Sulfonamide Allergy Hives Verified 04/18/21 09:34 Antibiotics) sulfamethoxazole Allergy Hives Verified 04/18/21 09:34 [From Bactrim] trimethoprim [From Bactrim] Allergy Hives Verified 04/18/21 09:34 tape Allergy Itching Uncoded 04/18/21 09:34 Home Meds: Home Meds Albuterol Sulfate [Proair Hfa] 2 puff IH Q6HR PRN 11/04/14 [History] Citalopram Hydrobromide [Celexa] 20 mg PO DAILY 11/04/14 [History] Cyclobenzaprine [Flexeril] 10 mg PO TID PRN 11/04/14 [History] Mupirocin Oint [Bactroban Oint] 1 applic TP TID PRN 11/04/14 [History] Ondansetron [Zofran ODT] 4 mg PO Q8HR PRN 11/04/14 [History] Triamcinolone Acetonide [Kenalog 0.1% Crm] 1 applic TOP DAILY 11/04/14 [History] Cholecalciferol (Vitamin D3) [Vitamin D3] 5,000 unit PO DAILY 06/01/15 [History] Topiramate 25 mg PO BID 08/16/17 [History] norgestimate-ethinyl estradioL [Sprintec 28 Day Tablet] 1 tab PO DAILY 09/30/18 [History] Aspirin [Halfprin] 81 mg PO DAILY 11/05/20 [History] Cetirizine [ZyrTEC] 20 mg PO DAILY 11/05/20 [History] Fluticasone Propionate [Flonase] 2 spray DAVID DAILY 11/05/20 [History] Hydrocortisone [Anusol-HC] 1 applic RC TID 11/05/20 [History] estradioL [Estrace] 0.5 mg PO DAILY 11/05/20 [History] Multivitamin with Minerals [Multiple Vitamin] 1 tab PO DAILY 01/09/21 [History] Famotidine [Pepcid] 10 mg PO DAILY 01/14/21 [History] Citalopram [Citalopram HBr] 10 mg PO DAILY 04/18/21 [History] Past Medical History Cardiovascular History: Reports: Other (See Below) Other Cardiovascular History: hypotension Respiratory History: Reports: Asthma Gastrointestinal History: Reports: Cholelithiasis, Hiatal Hernia, PUD Other Gastrointestinal History: ulcer Genitourinary History: Reports: UTI, Recurrent Other Genitourinary History: right ureter surgery [employer] History: Reports: 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 Musculoskeletal History: Reports: Other (See Below) Other Musculoskeletal History: right hip tear with cortisone injection, pectoralis tendonitis l upper arm pain Neurological History: Reports: Migraines Psychiatric History: Reports: Anxiety, Depression Endocrine/Metabolic History: Reports: Hypothyroidism, Obesity/BMI 30+ Other Endocrine/Metabolic History: hx hypothyroid Other Dermatologic History: frequent infections of acne in groin - Infectious Disease History Infectious Disease History: Reports: Chicken Pox - Past Surgical History HEENT Surgical History: Reports: LASIK GI Surgical History: Reports: Cholecystectomy, Vlad Fundoplication, Other (See Below) Other GI Surgeries/Procedures: perforated ulcer, vlad Female Surgical History: Reports: Ureteral Stent Musculoskeletal Surgical History: Reports: Arthroscopic Knee Other Musculoskeletal Surgeries/Procedures:: LT shoulder scope 11/10/20. 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 ED ROS GENERAL - Review of Systems Review Of Systems: See Below Constitutional: Reports: Fever, Weakness, Fatigue Respiratory: Reports: Shortness of Breath, Cough Cardiovascular: Reports: Dyspnea on Exertion ED EXAM, GENERAL - Physical Exam Exam: See Below Exam Limited By: No Limitations General Appearance: Alert, WD/WN, No Apparent Distress Respiratory/Chest: No Respiratory Distress, Lungs Clear, Normal Breath Sounds, No Accessory Muscle Use, Chest Non-Tender Cardiovascular: Regular Rate, Rhythm, No Murmur Course - Vital Signs Last Recorded V/S: Last Vital Signs Temp 97.2 F 04/18/21 09:46 Pulse 104 H 04/18/21 09:46 Resp 16 04/18/21 09:46 BP 120/62 04/18/21 09:46 Pulse Ox 100 04/18/21 09:46 - Orders/Labs/Meds Labs: Laboratory Tests 04/18/21 Range/Units 09:52 SARS CoV-2 RNA Rapid JUNIOR Positive H Departure - Departure Time of Disposition: 10:24 Disposition: Home, Self-Care 01 Condition: Fair Clinical Impression: COVID-19 - Discharge Information Instructions: 10 Things You Can Do to Manage Your COVID-19 Symptoms at Home - [facility] (12/05/2020) Referrals: Valerio Estes MD [Primary Care Provider] - Additional Instructions: Continue with symptomatic care the outpatient surgery center will contact you for an appointment time for monoclonal antibody therapy, please followup with your primary care provider in 10-15 days if not better, please call return to the emergency department with worsening of symptoms., Sepsis Event Note (ED) - Evaluation Sepsis Screening Result: No Definite Risk - Focused Exam Vital Signs: Vital Signs Temp Pulse Resp BP Pulse Ox 04/18/21 09:46 97.2 F 104 H 16 120/62 100 - Assessment/Plan Plan: Assessment Acuity = acute Site and laterality = viral syndrome Etiology = COVID-19 Manifestations = none Location of injury = Home Lab values = COVID-19 positive Plan Symptomatic care at this time she is a candidate for monoclonal antibody treatment therefore in order was placed hopefully they will get that done this week This note was dictated using [employer] voice recognition software please call with any questions on syntax or grammar.
== END 2021-04-18 10:56 | disposition home or self-care (01) ==
LOC: JP.ED 09:12
DX: U07.1 COVID-19 (principal); E03.9 Hypothyroidism, unspecified; I10 Essential (primary) hypertension; E66.9 Obesity, unspecified; Z68.39 Body mass index [BMI] 39.0-39.9, adult; Z91.048 Other nonmedicinal substance allergy status; Z88.2 Allergy status to sulfonamides; Z88.1 Allergy status to other antibiotic agents; Z79.82 Long term (current) use of aspirin; Z79.899 Other long term (current) drug therapy
CPT/HCPCS: 99284; U0002

== ENCOUNTER 2022-01-28 08:51 | Day surgery (SDC) | payer MEDICAID ==
[2022-01-28] MEDS ORDERED: fentaNYL 100 MCG/2 ML SDV ONE (09:15)
[2022-01-28] MEDS ORDERED: Propofol 200 MG/20 ML SDV ONE (09:16)
[2022-01-28] MEDS ORDERED: Midazolam 1 MG/ML 2 ML SDV ONE (09:16)
[2022-01-28] MEDS ORDERED: Sodium Chloride 0.9% 1,000 ML IV SCH ×2 (09:45→10:30)
[2022-01-28] MEDS ORDERED: metroNIDAZOLE/Normal Saline 500 MG in Premix Bag 1 BAG IV ONE (11:00)
[2022-01-28] MEDS ORDERED: ceFAZolin 2 GM in Sodium Chloride 0.9% 50 ML IV ONE (11:00)
[2022-01-28 11:40] VITALS: BP 120/75; PULSE 76
== END 2022-01-28 11:41 | disposition home or self-care (01) ==
LOC: JP.SDS 08:51
PROVIDERS: ATTEND Surgery
DX: K22.89 Other specified disease of esophagus (principal); K21.00 Gastro-esophageal reflux disease with esophagitis, without bleeding; F41.9 Anxiety disorder, unspecified; E66.9 Obesity, unspecified
CPT/HCPCS: 43239; 81025; J2250; J2704; J3010; J7030; 88305